=== PATIENT | female | born 1970 | race African-American/Black ===

== ENCOUNTER 2020-06-09 20:51 | Emergency (ER) | payer OTHER ==
[~2020-06-09] VITALS: Ht 172.7 cm; Wt 81.6 kg
[2020-06-09 21:06] VITALS: BP 151/90
[2020-06-09] MEDS ORDERED: KETOROLAC TROMETHAMINE INJ 30 MG/ML VIAL ONE (21:23)
--- NOTE | 2020-06-09 21:28 | NUR ---
PT MEDICATED ORDERED
--- NOTE | 2020-06-09 21:28 | NUR ---
XRAY AT BEDSIDE
[2020-06-09] MEDS ORDERED: KETOROLAC TROMETHAMINE INJ 60 MG/2 ML VIAL IM ONE (21:30)
--- NOTE | 2020-06-09 22:38 | NUR ---
Patient discharged to home in stable condition. Written and verbal after care instructions given. Patient verbalizes understanding of instruction.pt. ambulatory with a steady gait
== END 2020-06-09 22:38 | disposition home or self-care (01) ==
LOC: ER 21:01
DX: M25.461 Effusion, right knee (principal); M25.561 Pain in right knee; Z88.6 Allergy status to analgesic agent; Z60.2 Problems related to living alone
CPT/HCPCS: 29505; 73564; 96372; 99283; J1885

== ENCOUNTER 2022-12-13 21:12 | Emergency (ER) | payer OTHER ==
[~2022-12-13] VITALS: Ht 172.7 cm; Wt 88.5 kg
--- NOTE | 2022-12-14 02:00 | NUR ---
BIBSELF FROM HOME C/O L KNEE AND LOWER BACK PAIN. S/P GLF YESTERDAY. -LOC, -TRAUMA. PATIENT IS AAOX4. CALMER, ABLE TO MAKE NEEDS KNOWN. PLACED COMFORTABLY IN BED. VITALS CHECKED,.
[2022-12-14] MEDS ORDERED: KETOROLAC TROMETHAMINE INJ 60 MG/2 ML VIAL IM ONE (02:30)
[2022-12-14] MEDS ORDERED: LIDOCAINE 5% (PATCH) 1 EA PATCH TP ONE ×2 (02:30→02:31)
[2022-12-14] MEDS ORDERED: KETOROLAC TROMETHAMINE INJ 30 MG/ML VIAL ONE (02:31)
--- NOTE | 2022-12-14 02:48 | NUR ---
FF UP RADIOLOGY DEPT FOR XRAY AND CT SCAN
--- NOTE | 2022-12-14 03:20 | NUR ---
BROUGHT TO CT DEPT
--- NOTE | 2022-12-14 03:26 | NUR ---
CAME BACK FROM CT SCAN
--- NOTE | 2022-12-14 03:26 | NUR ---
PT RETURNEED TO ER BED [address]
--- NOTE | 2022-12-14 04:30 | NUR ---
PATIENT IS SHOUTING AT STAFF AND GOT MAD THAT SHE WAITED A LONG TIME. IT WAS EXPLAINED TO HER THAT WE DONT HAVE THE OFFICIAL RESULTS OF HER XRAYS YET. SHE GOT UPSET AND WANTS TO LEAVE. MADE AWARE. DR REDD SPOKE AND EXPLAINED TO PATIENT. PATIENT KEPT ON SHOUTING AT STAFF AND THREATENING STAFF. SHE WAS DIVERTED BACK TO BED.
--- NOTE | 2022-12-14 05:27 | NUR ---
PATIENT ELOPED. MADE AWARE. SECURITY ACTIVATED. PATIENT CANNOT BE FOUND ANYWHERE IN THE [place].
[2022-12-14 05:31] VITALS: BP 128/87
== END 2022-12-14 05:32 | disposition left against medical advice (07) ==
LOC: ER 21:14
DX: M25.562 Pain in left knee (principal); M54.50 Low back pain, unspecified; Z98.890 Other specified postprocedural states; Z60.2 Problems related to living alone; Z88.1 Allergy status to other antibiotic agents; W18.39XA Other fall on same level, initial encounter; Y93.89 Activity, other specified; Y92.89 Other specified places as the place of occurrence of the external cause; Y99.8 Other external cause status
CPT/HCPCS: 99285; 72131; 96372; 73564; J1885